=== PATIENT | female | born 2000 | race Caucasian/White ===

== ENCOUNTER 2023-04-02 00:51 | Emergency (ER) | payer MEDICAID, SELFPAY ==
[2023-04-02 00:51] VITALS: BP 126/71; PULSE 99; RESP 18; TEMP 36.9; O2SAT 100; BMI 19.3
--- NOTE | 2023-04-02 02:05 | EDS_ITS ---
HPI History of Present Illness Chief Complaint: Nausea/Vomiting Informant: patient Narrative Narrative: 22-year-old female presenting to the emergency room with headache nausea vomiting at 11.5 weeks gestation. Patient is G1, P0. She states that her COFFEE ATTENDANT is out of town that she recently moved here. She states that she needs to find an COFFEE ATTENDANT that she trust. She states that this afternoon she developed headache nausea and vomiting. The headache felt better if she pushed on her nose felt worse if she laid on the left temporal. She denies any fevers chills rashes diarrhea. No URI symptoms. She states that the headache is somewhat better but the vomiting is persisting. She did not take anything for the headache as she would like to keep this as natural as possible. She states that she did take a hit of marijuana earlier to see if it would help with the vomiting but it did not. She states that she does not use cannabis regularly but did so in the past. She has not had any significant problems with vomiting this but has had some nausea. PFSH PFSH Medical History no medical history Home Medications vit no.95-ferrous fumarate 28 mg-folic acid 800 mcg tablet ( Multivitamins) 1 tab PO DAILY 04/02/23 [History Last Taken Unknown] Allergy/AdvReac Type Severity Reaction Status Date / Time No Known Allergies Allergy Verified 04/02/23 00:56 Social History (Updated 04/02/23 @ 02:[address] Nba Rios, ) Smoking Status: Never smoker substance use type: marijuana EXAM Physical Exam Const Vital Signs: 04/02/23 00:51 Temperature 98.5 F Temperature Source Temporal Pulse Rate 99 Respiratory Rate 18 Blood Pressure 126/71 H Blood Pressure Mean 89 Pulse Ox 100 Oxygen Delivery Method Room Air Positive well nourished and well developed General Appearance ED: well developed HEENT Reports normocephalic, head/scalp atraumatic and moist mucous membranes Eyes PERRL and EOMs intact bilaterally Neck no lymphadenopathy, supple and no JVD Resp normal respiratory effort and clear to auscultation bilaterally Cardio regular rate, regular rhythm and no murmurs GI normal to inspection, nondistended, normoactive bowel sounds and non-tender Palpation: soft Back/Spine no CVA tenderness and normal ROM Extremity normal to inspection General Extremety ED: Negative for edema General Extremity: Negative for edema Neuro oriented x3 and CN's II-XII intact bilaterally Sensorium / Orientation: alert Motor Exam: strength 5/5 throughout Psych mental status grossly normal Mood & Affect: Negative for depressed or tearful Skin no rashes or lesions noted and no wounds MDM MDM MDM Narrative Medical decision making narrative: BMP shows a glucose of 110. Urinalysis shows no overt infection there is some contamination of 5-10 squamous cells. Patient received a liter of IV fluids and Zofran. Repeat examination she states she is feeling better. Nursing documented heart tones at 174. I documented 159. The patient does not wish to have a second liter of IV fluids. She states that she feels overall better. I encouraged her to establish COFFEE ATTENDANT care and provided her with 2 groups and the on-call physicians for them tonight. She states she has Zofran at home. I encouraged her not to use cannabis while . Lab Data Attestation: I reviewed the patient's lab results. Labs: Laboratory Results - last 24 hr 04/02/23 04/02/23 01:05 02:45 Sodium 137 Potassium 3.5 Chloride 106 Carbon Dioxide 24.0 Anion Gap 7 BUN 7 Creatinine 0.40 L Estim Creat Clear Calc 173.50 Est GFR (MDRD) Af Amer 262 Est GFR (MDRD) Non-Af 216 BUN/Creatinine Ratio 17.7 Glucose 110 H Calcium 9.0 Urine Color Yellow Urine Clarity Sl. Cloudy Urine pH 7.0 Ur Specific [place] 1.015 Urine Protein 15 H Urine Glucose (UA) Normal Urine Ketones Negative Urine Occult Blood Negative Urine Nitrite Negative Urine Bilirubin Negative Urine Urobilinogen Normal Ur Leukocyte Esterase Negative Urine RBC 0 SEEN Urine WBC 0 SEEN Ur Squamous Epith Cells 5-10 SEEN Amorphous Sediment 2+ Urine Bacteria 2+ Urine Mucus 0 SEEN Discharge Plan Triage Chief Complaint: Nausea/Vomiting ED Provider: Nba Rios Dx/Rx/DC Orders Clinical Impression: First trimester , Headache, Vomiting Prescriptions: No Action PNV cmb#95-ferrous fumarate-FA [ Multivitamins] 28 mg iron- 800 mcg tablet 1 tab PO DAILY Primary Care Provider: EZ ESPINOSA Referrals: EZ ESPINOSA [Other] Olivia Rodriguez DO [Med Staff - Active Staff] - As Needed (For COFFEE ATTENDANT) Kamilah Ponce MD [Med Staff - Active Staff] - As Needed (For COFFEE ATTENDANT) Disposition Disposition: Home, Self Care
[2023-04-02] MEDS: 0.9% Normal Saline (1000mL) 1,000 ML 1000 ML IV (02:35)
[2023-04-02] MEDS: Ondansetron 4 MG/2 ML Vial IV (02:35)
[2023-04-02 02:48] LABS: Anion Gap 7 (5-15); BUN 7 mg/dL (7-18); BUN/Creat Ratio 17.7 RATIO (10-20); Chloride 106 mmol/L (98-107); EST Glomerular Filtration Rate 216 mL/min (>60); Est Glom Filt Rate - Afr Amer 262 mL/min (>60); Glucose 110 mg/dL (74-106); Potassium 3.5 mmol/L (3.5-5.1); Sodium Level 137 mmol/L (136-145)
[2023-04-02 02:54] LABS: Mucous, Urine 0 SEEN /hpf (<or=2+); Red Blood Cells-Urine 0 SEEN /hpf (0-5); White Blood Cells 0 SEEN /hpf (0-5)
[2023-04-02 02:55] LABS: Color, Urine Yellow (Yellow); Glucose, Dipstick Normal (Normal); Ketone-Dipstick Negative (Negative); Leukocyte Esterase-Dipstick Negative /ul (Negative); Nitrite-Dipstick Negative (Negative); Occult Blood-Urine Negative /ul (Negative); Protein-Dipstick 15 mg/dl (Negative); Specific Gravity, Urine 1.015 (1.002-1.030); Urine Bilirubin Dipstick Negative (Negative); Urine Clarity Sl. Cloudy (Clear); Urine Urobilinogen Normal (Normal)
[2023-04-02 03:00] LABS: Amorphous Sediment 2+; Bacteria 2+ /hpf (None Seen); Squamous Epithelial Cells - UA 5-10 SEEN /hpf (5-10)
[2023-04-02 03:55] VITALS: BP 115/67; PULSE 67; RESP 18; O2SAT 100
== END 2023-04-02 03:56 | disposition home or self-care (01) ==
PROVIDERS: Emergency Provider Emergency Medicine; Visit Provider Emergency Medicine
DX: O99.891 Other specified diseases and conditions complicating pregnancy (principal); O99.321 Drug use complicating pregnancy, first trimester; F12.90 Cannabis use, unspecified, uncomplicated; R51.9 Headache, unspecified; Z3A.11 11 weeks gestation of pregnancy
CPT/HCPCS: 80048; 81001; 96361; 96374; 99283; J7030; A4216; J2405

== ENCOUNTER 2023-09-30 04:07 | Inpatient (IN) | payer MEDICAID, SELFPAY ==
[2023-09-30] VITALS (86 sets, daily range): BP systolic 108–137; BP diastolic 55–84; PULSE 71–172; RESP 16–22; TEMP 36.4–37.4; O2SAT 79–100; BMI 29.5
[2023-09-30 03:14] LABS: Color, Urine Yellow (Yellow); Glucose, Dipstick Normal (Normal); Ketone-Dipstick Negative (Negative); Leukocyte Esterase-Dipstick Negative /ul (Negative); Nitrite-Dipstick Negative (Negative); Occult Blood-Urine 150 /ul (Negative); Protein-Dipstick 30 mg/dl (Negative); Urine Bilirubin Dipstick Negative (Negative); Urine Clarity Cloudy (Clear); Urine Urobilinogen Normal (Normal)
[2023-09-30 03:57] LABS: ROM Internal Control Test YES-OK TO RESULT pt. (Internal QC); ROM Patient Test POSITIVE (Negative); Record Kit Lot#, ROM+ K1409
[2023-09-30 04:42] LABS: Absolute Lymphocyte Count 2.09 X10^3/uL (0.83-4.51); Absolute Neutrophil Count 10.6 X10^3/uL (2.0-7.7); Basophil# 0.05 X10^3/uL; Basophil% 0.4 % (0-1); Eosinophil# 0.05 X10^3/uL; Eosinophils% 0.4 % (0-5); Hematocrit 34.7 % (37-47); Hemoglobin 11.3 g/dL (12.0-15.0); Lymphocyte # 2.09 X10^3/ul (0.83-4.51); Lymphocyte % 14.8 % (19-41); Mean Corp Hgb Conc 32.6 g/dL (32-36); Mean Corpuscular Hgb 28.2 pg (27.0-32.0); Mean Corpuscular Volume 86.5 fL (81-99); Mean Platelet Vol. 9.2 fl (6.2-12.0); Monocyte# 1.25 X10^3/uL; Monocyte% 8.8 % (0-10); NRBC Flagged by Analyzer 0 % (0-5); Neutrophil # 10.56 X10^3/uL (2.7-7.7); Neutrophil % 74.7 % (47-70); Platelet Count 384 K/mm3 (150-450); RBC Distribution Width SD 40.6 fl (35.1-43.9); Red Blood Count 4.01 M/mm3 (4.2-5.4); White Blood Count 14.1 K/mm3 (4.4-11.0)
[2023-09-30] MEDS: fentaNYL 100 MCG/2 ML Ampul IV (05:00)
[2023-09-30] MEDS: Lactated Ringers 1,000 ML 50 ML IV (05:02)
[2023-09-30 05:22] LABS: Syphilis Antibodies Non-reactive
[2023-09-30] MEDS: Ondansetron 4 MG/2 ML Vial IV ×3 (06:39→16:05)
[2023-09-30] MEDS: LACTATED RINGERS 500 ML 999 ML IV ×2 (08:45→15:44)
[2023-09-30] MEDS: fentaNYL-bupivacaine (epidural) 100 ML BAG EPIDURAL ×3 (09:21→18:00)
[2023-09-30] MEDS: Lactated Ringers 1,000 ML 200 ML IV ×2 (12:48→18:17)
--- NOTE | 2023-09-30 16:59 | PCM.HP.OB ---
HPI - General General Date of Admission: 09/30/23 Date of Service: 09/30/23 Chief Complaint: SROM at 0115 HPI Narrative NEETA SCHAEFER, is a 22 F who presents ROM. Maternal Data Information Final ALYSON: [birth year] Gestational age: 37+5 PFSH PFSH Home Medications vit no.95-ferrous fumarate 28 mg-folic acid 800 mcg tablet ( Multivitamins) 1 tab PO DAILY 04/02/23 [History Last Taken Unknown] Allergy/AdvReac Type Severity Reaction Status Date / Time No Known Allergies Allergy Verified 09/30/23 02:50 Social History Smoking Status: Former smoker substance use type: marijuana History Elective abortions Hx Para 0 Spontaneous abortions Hx # Term Pregnancies Ectopic pregnancies Hx # Pregnancies Multiple births # of living children ROS Constitutional Constitutional: Denies fatigue, fever(s) or malaise Eyes Eyes: Denies change in vision ENT HEENT: Denies dizziness or headache(s) Cardiovascular Cardiovascular: Denies chest pain, dyspnea or lightheadedness Respiratory/Chest Respiratory/Chest: Denies cough or dyspnea Gastrointestinal Gastrointestinal: Denies change in bowel habits Genitourinary Genitourinary: Denies burning urination or genital lesions Integumentary Integumentary: Denies rash Neurologic Neurologic: Denies confusion, dizziness, headache(s), numbness or weakness Vital Signs Vital Signs Vital Signs: 09/30/23 02:43 09/30/23 02:43 09/30/23 03:15 Temperature Temperature Source Temporal Pulse Rate 93 Respiratory Rate Blood Pressure 128/84 H BP Systolic 128 BP Diastolic 84 Pulse Ox 09/30/23 03:15 09/30/23 03:15 09/30/23 04:29 Temperature 98.9 F Temperature Source Pulse Rate Respiratory Rate 16 Blood Pressure 132/63 H BP Systolic 132 BP Diastolic 63 Pulse Ox 09/30/23 04:29 09/30/23 04:28 09/30/23 04:28 Temperature Temperature Source Temporal Pulse Rate 95 Respiratory Rate 18 Blood Pressure BP Systolic BP Diastolic Pulse Ox 09/30/23 04:28 09/30/23 04:40 09/30/23 04:40 Temperature 98.8 F Temperature Source Pulse Rate 93 Respiratory Rate Blood Pressure BP Systolic BP Diastolic Pulse Ox 99 09/30/23 05:28 09/30/23 05:28 09/30/23 05:28 Temperature Temperature Source Temporal Pulse Rate 75 Respiratory Rate Blood Pressure 120/75 BP Systolic 120 BP Diastolic 75 Pulse Ox 09/30/23 05:28 09/30/23 05:28 09/30/23 06:29 Temperature 98.0 F Temperature Source Temporal Pulse Rate Respiratory Rate 18 Blood Pressure BP Systolic BP Diastolic Pulse Ox 09/30/23 06:29 09/30/23 06:29 09/30/23 06:29 Temperature Temperature Source Pulse Rate 89 Respiratory Rate 18 Blood Pressure 122/70 H BP Systolic 122 BP Diastolic 70 Pulse Ox 09/30/23 06:29 09/30/23 07:32 09/30/23 07:32 Temperature 99.0 F Temperature Source Pulse Rate 83 Respiratory Rate Blood Pressure 113/72 BP Systolic 113 BP Diastolic 72 Pulse Ox 09/30/23 07:33 09/30/23 07:33 09/30/23 07:31 Temperature Temperature Source Temporal Pulse Rate 172 H Respiratory Rate Blood Pressure BP Systolic BP Diastolic Pulse Ox 99 09/30/23 07:31 09/30/23 07:31 09/30/23 07:31 Temperature 97.5 F L Temperature Source Temporal Pulse Rate Respiratory Rate 20 H Blood Pressure BP Systolic BP Diastolic Pulse Ox 09/30/23 07:31 09/30/23 07:31 09/30/23 08:27 Temperature 97.5 F L Temperature Source Temporal Pulse Rate Respiratory Rate 20 H Blood Pressure BP Systolic BP Diastolic Pulse Ox 09/30/23 08:27 09/30/23 08:27 09/30/23 09:09 Temperature 98.2 F Temperature Source Pulse Rate 131 H Respiratory Rate 22 H Blood Pressure BP Systolic BP Diastolic Pulse Ox 09/30/23 09:09 09/30/23 09:13 09/30/23 09:13 Temperature Temperature Source Pulse Rate 95 Respiratory Rate Blood Pressure BP Systolic BP Diastolic Pulse Ox 81 99 09/30/23 09:18 09/30/23 09:18 09/30/23 09:19 Temperature Temperature Source Pulse Rate 90 Respiratory Rate Blood Pressure 128/77 H BP Systolic 128 BP Diastolic 77 Pulse Ox 100 09/30/23 09:19 09/30/23 09:23 09/30/23 09:23 Temperature Temperature Source Pulse Rate 94 72 Respiratory Rate Blood Pressure BP Systolic BP Diastolic Pulse Ox 99 09/30/23 09:24 09/30/23 09:24 09/30/23 09:25 Temperature Temperature Source Pulse Rate 74 Respiratory Rate Blood Pressure 125/67 H 126/72 H BP Systolic 125 126 BP Diastolic 67 72 Pulse Ox 09/30/23 09:25 09/30/23 09:28 09/30/23 09:28 Temperature Temperature Source Pulse Rate 78 80 Respiratory Rate Blood Pressure 119/74 BP Systolic 119 BP Diastolic 74 Pulse Ox 09/30/23 09:28 09/30/23 09:33 09/30/23 09:33 Temperature Temperature Source Pulse Rate 81 Respiratory Rate Blood Pressure BP Systolic BP Diastolic Pulse Ox 99 100 09/30/23 09:33 09/30/23 09:33 09/30/23 09:35 Temperature 98.2 F Temperature Source Temporal Pulse Rate Respiratory Rate Blood Pressure 111/55 L BP Systolic 111 BP Diastolic 55 Pulse Ox 09/30/23 09:35 09/30/23 09:38 09/30/23 09:38 Temperature Temperature Source Pulse Rate 83 72 Respiratory Rate Blood Pressure BP Systolic BP Diastolic Pulse Ox 100 09/30/23 09:40 09/30/23 09:40 09/30/23 09:43 Temperature Temperature Source Pulse Rate 84 93 Respiratory Rate Blood Pressure 118/59 L BP Systolic 118 BP Diastolic 59 Pulse Ox 09/30/23 09:22 09/30/23 09:43 09/30/23 09:44 Temperature Temperature Source Pulse Rate Respiratory Rate 20 H Blood Pressure 115/57 L BP Systolic 115 BP Diastolic 57 Pulse Ox 100 09/30/23 09:44 09/30/23 09:42 09/30/23 09:37 Temperature Temperature Source Pulse Rate 86 Respiratory Rate 18 18 Blood Pressure BP Systolic BP Diastolic Pulse Ox 09/30/23 09:32 09/30/23 09:27 09/30/23 09:48 Temperature Temperature Source Pulse Rate 74 Respiratory Rate 18 20 H Blood Pressure BP Systolic BP Diastolic Pulse Ox 09/30/23 09:48 09/30/23 09:49 09/30/23 09:49 Temperature Temperature Source Pulse Rate 78 Respiratory Rate Blood Pressure 113/55 L BP Systolic 113 BP Diastolic 55 Pulse Ox 100 09/30/23 09:53 09/30/23 09:53 09/30/23 09:54 Temperature Temperature Source Pulse Rate 78 Respiratory Rate Blood Pressure 118/57 L BP Systolic 118 BP Diastolic 57 Pulse Ox 100 09/30/23 09:54 09/30/23 09:58 09/30/23 09:58 Temperature Temperature Source Pulse Rate 78 82 Respiratory Rate Blood Pressure BP Systolic BP Diastolic Pulse Ox 99 09/30/23 09:59 09/30/23 09:59 09/30/23 10:03 Temperature Temperature Source Pulse Rate 81 86 Respiratory Rate Blood Pressure 120/59 L BP Systolic 120 BP Diastolic 59 Pulse Ox 09/30/23 10:03 09/30/23 10:04 09/30/23 10:04 Temperature Temperature Source Pulse Rate 88 Respiratory Rate Blood Pressure 114/59 L BP Systolic 114 BP Diastolic 59 Pulse Ox 99 09/30/23 10:08 09/30/23 10:08 09/30/23 10:10 Temperature Temperature Source Pulse Rate 76 Respiratory Rate Blood Pressure 121/61 H BP Systolic 121 BP Diastolic 61 Pulse Ox 98 09/30/23 10:10 09/30/23 10:13 09/30/23 10:13 Temperature Temperature Source Pulse Rate 86 99 Respiratory Rate Blood Pressure BP Systolic BP Diastolic Pulse Ox 99 09/30/23 10:15 09/30/23 10:15 09/30/23 10:18 Temperature Temperature Source Pulse Rate 80 80 Respiratory Rate Blood Pressure 122/67 H BP Systolic 122 BP Diastolic 67 Pulse Ox 09/30/23 10:18 09/30/23 10:20 09/30/23 10:20 Temperature Temperature Source Pulse Rate 85 Respiratory Rate Blood Pressure 111/57 L BP Systolic 111 BP Diastolic 57 Pulse Ox 99 09/30/23 10:23 09/30/23 10:23 09/30/23 10:23 Temperature 98.9 F Temperature Source Temporal Pulse Rate Respiratory Rate 18 Blood Pressure BP Systolic BP Diastolic Pulse Ox 09/30/23 10:50 09/30/23 10:50 09/30/23 09:52 Temperature Temperature Source Pulse Rate 85 Respiratory Rate 18 Blood Pressure 116/56 L BP Systolic 116 BP Diastolic 56 Pulse Ox 09/30/23 09:47 09/30/23 11:22 09/30/23 11:22 Temperature Temperature Source Pulse Rate 91 Respiratory Rate 18 Blood Pressure 115/57 L BP Systolic 115 BP Diastolic 57 Pulse Ox 09/30/23 11:33 09/30/23 11:33 09/30/23 11:33 Temperature 98.5 F Temperature Source Temporal Pulse Rate Respiratory Rate 18 Blood Pressure BP Systolic BP Diastolic Pulse Ox 09/30/23 11:50 09/30/23 11:50 09/30/23 11:55 Temperature Temperature Source Pulse Rate 80 87 Respiratory Rate Blood Pressure BP Systolic BP Diastolic Pulse Ox 98 09/30/23 11:55 09/30/23 12:00 09/30/23 12:00 Temperature Temperature Source Pulse Rate 91 Respiratory Rate Blood Pressure BP Systolic BP Diastolic Pulse Ox 98 98 09/30/23 12:22 09/30/23 12:22 09/30/23 12:22 Temperature 98.3 F Temperature Source Temporal Pulse Rate Respiratory Rate 18 Blood Pressure BP Systolic BP Diastolic Pulse Ox 09/30/23 12:23 09/30/23 12:23 09/30/23 12:23 Temperature Temperature Source Pulse Rate 94 Respiratory Rate Blood Pressure 108/58 L BP Systolic 108 BP Diastolic 58 Pulse Ox 98 09/30/23 13:22 09/30/23 13:22 09/30/23 13:22 Temperature Temperature Source Temporal Pulse Rate 88 Respiratory Rate Blood Pressure 122/62 H BP Systolic 122 BP Diastolic 62 Pulse Ox 09/30/23 13:22 09/30/23 13:22 09/30/23 14:06 Temperature 98.9 F Temperature Source Temporal Pulse Rate Respiratory Rate 18 Blood Pressure BP Systolic BP Diastolic Pulse Ox 09/30/23 14:06 09/30/23 14:06 09/30/23 14:12 Temperature 98.9 F Temperature Source Pulse Rate Respiratory Rate 18 Blood Pressure 120/60 BP Systolic 120 BP Diastolic 60 Pulse Ox 09/30/23 14:12 09/30/23 15:17 09/30/23 15:17 Temperature Temperature Source Pulse Rate 82 84 Respiratory Rate Blood Pressure 118/68 BP Systolic 118 BP Diastolic 68 Pulse Ox 09/30/23 15:17 09/30/23 15:17 09/30/23 15:17 Temperature Temperature Source Temporal Pulse Rate Respiratory Rate 16 Blood Pressure BP Systolic BP Diastolic Pulse Ox 100 09/30/23 15:17 09/30/23 16:15 09/30/23 16:15 Temperature 99.0 F Temperature Source Pulse Rate 92 Respiratory Rate Blood Pressure 124/75 H BP Systolic 124 BP Diastolic 75 Pulse Ox 09/30/23 16:14 09/30/23 16:14 09/30/23 16:14 Temperature 99.0 F Temperature Source Temporal Pulse Rate Respiratory Rate 16 Blood Pressure BP Systolic BP Diastolic Pulse Ox Weight Weight: 75.75 kg Body Mass Index (BMI) 29.5 Physical Exam Const alert and no apparent distress General Appearance: cooperative HEENT normocephalic Resp normal respiratory effort Cardio regular rate GI soft to palpation GI Narrative: gravid, nontender, appropriate for gestational age Extremity no calf tenderness General Extremity: edema Skin no wounds Rashes: No rashes noted Psych activity/motor behavior normal Labs Labs Labs: Blood Type B POSITIVE Antibody Screen NEGATIVE Hct 34.7 % (37-47) L Hgb 11.3 g/dL (12.0-15.0) L Syphilis Total Ab Non-reactive Assessment & Plan (1) SROM (spontaneous rupture of membranes): PLAN: Augmentation of labor (2) 37 weeks gestation of :
[2023-09-30] MEDS: Oxytocin 10 UNITS/ML Vial IM (22:36)
[2023-09-30] MEDS: Oxytocin 15 Units/NS 250ml 15 UNITS/250 ML IV.SOLN 83 UNITS IV (22:36)
[2023-10-01] VITALS (25 sets, daily range): BP systolic 104–137; BP diastolic 58–86; PULSE 76–92; RESP 16; TEMP 36.6–37.3; O2SAT 97–99
--- NOTE | 2023-10-01 00:27 | EX.PCM.OBRPT ---
Assessment & Plan (1) (spontaneous vaginal delivery): (2) 37 weeks gestation of : Maternal Data Information Final ALYSON: 10[birth year]/23 Gestational age: 37+5 Vaginal Delivery Maternal Presentation Maternal Presentation: Spontaneous Rupture of Membranes Operative Information Date of Procedure: 09/30/23 Pre-Operative Diagnosis: PROM Post-Operative Diagnosis: same Surgery / Procedure Performed: Spontaneous Vaginal Delivery Type of Anesthesia: Epidural Drain: [place] to straight drain Estimated Blood Loss: 100 Time of Delivery: 22:34 Findings Description of Procedure: Patient presented with PROM. Progressed to complete without Pitocin. Pushed for approximately 4 hours delivering TYLOR with the right hand below the chin. The anterior and posterior shoulder delivered easily. The infant cried upon delivery. The infant was placed n the maternal abdomen. The cord was doubly clamped and cut. The placenta delivered with traction. A 1st degree laceration was repaired with Vicryl Rapide Presentation: Vertex and TYLOR Amniotic Membrane Rupture Type: Spontaneous Amniotic Fluid Description: Clear Placental Delivery Description: Spontaneous Placenta Disposition: [facility] Cord Vessel Description: 3 Vessels Cord Entanglement: None Infant A Gender: Female (1 minute): 9 (5 minute): 9 Delayed Cord Clamping: Yes Post Vaginal Delivery Medications Given After Delivery: IV Pitocin and IM Pitocin Episiotomy Description: None Laceration: Midline and 1st degree Complication Complications: None
[2023-10-01] MEDS: Ibuprofen 600 MG Tablet PO ×3 (03:43→20:47)
--- NOTE | 2023-10-01 09:14 | PCM.PN.OB ---
Subjective Subjective Doing well per patient and nursing staff. Ambulating and taking PO without difficulty. Voiding and passing flatus. Pain controlled. , services for assistance. Denies headache, visual changes, chest pain, shortness of breath, leg pain or increased bleeding. Lochia normal. Objective Data Objective Data Vital Signs: Vital Signs Temp Pulse Resp BP Pulse Ox O2 Del Method 98 F 90 16 119/73 99 Room Air 10/01/23 08:19 10/01/23 08:19 10/01/23 08:19 10/01/23 08:19 10/01/23 01:03 10/01/23 08:19 Oxygen Delivery Method Room Air Weight: 167 lb Body Mass Index (BMI) 29.5 Intake & Output: Intake and Output for Last 24 Hours 09/29/23 09/30/23 10/01/23 23:59 23:59 23:59 Intake Total 3739.17 / 3739.17 250 / 250 Output Total 1250 / 1250 1000 / 1000 Balance 2489.17 / 2489.17 -750 / -750 Lab / Micro Data 09/30/23 04:20 ROS Constitutional Constitutional: Reports systems reviewed and no addt'l complaints, except as documented; Denies headache(s) Eyes Eyes: Denies acute decrease in peripheral vision, blurry vision or change in vision ENT HEENT: Reports systems reviewed and no addt'l complaints, except as documented Cardiovascular Cardiovascular: Denies chest pain or dizziness Respiratory/Chest Respiratory/Chest: Denies cough, dyspnea, dyspnea on exertion, shortness of breath at rest or shortness of breath with exertion Gastrointestinal Gastrointestinal: Denies abdominal pain, diarrhea, nausea or vomiting Genitourinary Genitourinary: Denies abdominal discomfort Musculoskeletal Musculoskeletal: Denies limited range of motion Integumentary Integumentary: Reports systems reviewed and no addt'l complaints, except as documented Neurologic Neurologic: Reports systems reviewed and no addt'l complaints, except as documented Psychiatric Psychiatric: Reports systems reviewed and no addt'l complaints, except as documented Endocrine Endocrinology: Reports systems reviewed and no addt'l complaints, except as documented Hematologic/Lymphatic Hematologic/Lymphatic: Reports systems reviewed and no addt'l complaints, except as documented Allergic/Immunologic Allergic/Immunologic: Reports systems reviewed and no addt'l complaints, except as documented Physical Exam Const alert and oriented x3 General Appearance: cooperative Orientation / Consciousness: awake, oriented to person, oriented to place and oriented to time Exam Limitations: no limitations HEENT normocephalic Head and Scalp: normal to inspection, normocephalic and atraumatic Face and Sinus: normal facial exam Eyes General Eye: normal appearance of both eyes Neck full ROM Chest Chest: symmetrical chest wall rise Resp normal respiratory effort and normal air movement Auscultation: clear to auscultation bilaterally Cardio regular rate, regular rhythm, S1 normal heart sound, S2 normal heart sound, no murmurs, no rub, no gallops and no clicks GI normal to inspection, nondistended, normoactive bowel sounds and non-tender appearance of the vagina normal Bladder / Kidney Exam: no CVA tenderness Back/Spine normal ROM Extremity normal to inspection and full ROM Skin no rashes or lesions noted Neuro oriented x3 and moves all extremities Sensorium / Orientation: awake, alert and oriented to person Motor Exam: clonus absent Deep Tendon Reflexes: Rt Patellar (L4): 2+ and Lt Patellar (L4): 2+ Assessment & Plan (1) (spontaneous vaginal delivery): (2) Lactating mother: PLAN: Plan 1) Routine PP care 2) Vitals stable 3) I&O 4) Pain management 5) 6) Planning D/C home tomorrow
[2023-10-01] MEDS: Acetaminophen 500 MG Tablet 1000 MG PO ×2 (10:25→17:30)
[2023-10-01] MEDS: Benzocaine/Lanolin/Aloe Vera 1 SPRAY EACH TOPICAL (12:24)
--- NOTE | 2023-10-01 13:36 | PCM.PN.OB ---
Objective Data Objective Data Vital Signs: Vital Signs Temp Pulse Resp BP Pulse Ox O2 Del Method 98 F 82 16 116/59 L 99 Room Air 10/01/23 08:19 10/01/23 12:20 10/01/23 12:20 10/01/23 12:20 10/01/23 01:03 10/01/23 12:20 Oxygen Delivery Method Room Air Weight: 167 lb Body Mass Index (BMI) 29.5 Intake & Output: Intake and Output for Last 24 Hours 09/29/23 09/30/23 10/01/23 23:59 23:59 23:59 Intake Total 3739.17 / 3739.17 250 / 250 Output Total 1250 / 1250 1000 / 1000 Balance 2489.17 / 2489.17 -750 / -750 Lab / Micro Data 09/30/23 04:20
[2023-10-02 01:31] VITALS: BP 111/63; PULSE 71
[2023-10-02 01:41] VITALS: BP 111/63; PULSE 71; RESP 16; TEMP 36.4
[2023-10-02 08:49] VITALS: BP 123/76; PULSE 83
[2023-10-02 08:50] VITALS: BP 123/76; PULSE 83; PULSE 86; RESP 16; TEMP 36.7; O2SAT 98; O2SAT 99
--- NOTE | 2023-10-02 09:10 | PCM.PN.CNM ---
Subjective Subjective Patient seen at bedside. Pumping and feeding via spoon. Denies pain. Ambulating and voiding without difficulty. Objective Data Objective Data Vital Signs: Vital Signs Temp Pulse Resp BP Pulse Ox O2 Del Method 98.1 F 83 16 123/76 H 99 Room Air 10/02/23 08:50 10/02/23 08:50 10/02/23 08:50 10/02/23 08:50 10/02/23 08:50 10/02/23 08:50 Oxygen Delivery Method Room Air Weight: 167 lb Body Mass Index (BMI) 29.5 Intake & Output: Intake and Output for Last 24 Hours 09/30/23 10/01/23 10/02/23 23:59 23:59 23:59 Intake Total 3739.17 / 3739.17 250 / 250 Output Total 1250 / 1250 1000 / 1000 Balance 2489.17 / 2489.17 -750 / -750 Lab / Micro Data 09/30/23 04:20 ROS Eyes Eyes: Denies blurry vision, change in vision or spots in vision ENT HEENT: Denies dizziness or headache(s) Cardiovascular Cardiovascular: Denies abdominal pain, chest pain or dyspnea Respiratory/Chest Respiratory/Chest: Denies cough, dyspnea, shortness of breath at rest or shortness of breath with exertion Gastrointestinal Gastrointestinal: Denies abdominal pain, diarrhea or vomiting Genitourinary Genitourinary: Denies change in urinary stream, difficulty urinating or dysuria Musculoskeletal Musculoskeletal: Reports none Integumentary Integumentary: Denies rash Neurologic Neurologic: Denies dizziness, headache(s), memory loss or weakness Physical Exam Const alert and no apparent distress General Appearance: cooperative and comfortable Exam Limitations: no limitations HEENT normocephalic Eyes General Eye: normal appearance of both eyes Neck full ROM General: normal visual inspection Chest Chest: symmetrical chest wall rise Resp normal respiratory effort and normal air movement Effort and Inspection: symmetric chest movement Auscultation: clear to auscultation bilaterally Cardio regular rate and regular rhythm GI normal to inspection, nondistended, normoactive bowel sounds Back/Spine normal ROM Extremity full ROM and no calf tenderness General Extremity: normal exam except as noted Skin no rashes or lesions noted Neuro CN's II-XII intact bilaterally Psych mental status grossly normal Assessment & Plan (1) Lactating mother: (2) (spontaneous vaginal delivery): (3) Laceration, obstetrical, first degree: PLAN: Plan PPD 1 Routine care support Anticipate discharge home tomorrow
--- NOTE | 2023-10-02 12:18 | CASEMGMT ---
Social Work Assessment Labor and Delivery Unit Patient Address: [address] [place] [id number] Phone number: [phone] Date of Referral: 09/30/23 Time of Referral:? 520 Referred By: Mary Rolle Date of Intervention: ?10/01/23? Time of Intervention:? 1320 Reason for Referral: mental health Sw completed chart review and acknowledges social work consult due to maternal mental health. Sw presented to bedside and introduced self to mother of baby (MOB- Isis) and father of baby (FOB- Giovanni). Sw explained reason for sw involvement and completed psychosocial assessment. Sw did ask FOB to step out of room so that MOB could complete [place] Depression Scale. FOB did so willingly and respectfully. History obtained from: medical records, MOB and FOB Household composition: MOB states that at this time she and FOB are living in a home/ apartment with other tenants. MOB states that she and FOB have a room and baby also has her own room. MOB states that their landlord just informed them that there is another house across the street that they could move into that offers more room. Patient's parent/guardian status:? MOB states that she and FOB have been together for 3.5 years. MOB states that she had plans to hang out with a friend, and when she arrived at her friends house the friend was not ready yet. While MOB waited to spent time with FOB who was her friends roommate at that time. ? Medical History: ?JOSSELYN is 22 year old female who is 1, para 0- now 1 following labor and delivery of . JOSSELYN received routine care during her with [facility]. JOSSELYN presented to hospital and delivered baby via vaginal delivery at 37 weeks gestation. Baby girl, named Belinda Wilkins, was born weighing 6lb 8oz with apgars of 9 and 9 at one and five minutes of life, respectfully. MOB states that baby will be followed by Dr. Mccall for pediatrics. MOB states that she is breast feeding and does have a pump for home. Educational Status:? Both parents graduated from high school, no concerns with reading, learning or comprehension. Financial Status: Both parents are gainfully employed outside of the home. FOB works fro [employer] in [place]. MOB states that she works at [employer] and is able to take off as much time as she needs for . Supplies:?? Parents have obtained all necessary baby supplies, including: car seat, safe sleep space, clothes, diapers and wipes. MOB states that they did not have the car seat installed until today because baby was born early. Childcare/Caregiver(s):? JOSSELYN states that she will be the primary caregiver to baby along with FOB when he is not at work. Parents state that when they are both at work they have two family members that will be able to help with childcare. Transportation:??MOB states that she does not drive, but TIFF does and he helps her to get to scheduled appointments or work. Programs/Agencies Involved: ?JOSSELYN is connected to insurance through [employer]. Sw encouraged MOB to get connected to [employer] and to apply for SNAP. Parents express understanding. ?? Children Services/Legal Issues:?No history of involvement and no issues or concerns warranting referral to be made at this time. ?? Behavioral Health Issues: ??Mental Health History:?FOGwendolyn denies mental health history. MOB states that she has been diagnosed with anxiety, depression, PTSD and OCD. MOB states that she is not prescribed medications at this time. MOB is not connected to any mental health services or supports but is wanting to get connected. Sw provided MOB with list of local counseling agencies and offered to help MOB get an appointment scheduled. MOB completed [place] Depression Scale, her score was a 6. Sw provided education and support. ?? Substance Use History:?Parents deny substance use history. ? Family History:?JOSSELYN states that her mom has a history of abusing pain pills, but has been engaged in a suboxone treatment program for over a year. ??? Drug Screens: ?No drug screens observed during chart review. Family/Social Stressors:? Parents deny any issues, concerns or stressors. Support Systems: TIFF states that his mom is their biggest support, MOB states that TIFF is her biggest support and her sister. Depression/Shaken Baby/Safe Sleeping:? Sw educated parents at length regarding signs and symptoms of baby blues and depression. Sw explained that due to MOB's mental health history/ diagnoses she is more susceptible to experiencing baby blues and depression or anxiety. Parents express understanding. Sw educated parents on shaken baby prevention and ABCs of safe sleep. Parents express understanding. ASSESSMENT: MOB and baby admitted following labor and delivery of . MOB and FOB both engaged in completion of psychosocial assessment. Parents have all necessary baby supplies that they need for baby. Parents have limited natural supports in place, but they are close and supportive to one another. FOB observed to be very attentive to MOB and her needs, and also observed to provide loving and appropriate hands on care to . MOB receptive to learning about mental health issues. MOB states that FOB would be able to recognize if she were struggling with her mental health and would know how to help and support her. ? PLAN:? MOB and baby to be discharged when medically ready. ?No other services requested or indicated. Justin Vang, FLOOR MECHANIC, TANYARD WORKER
[2023-10-02 13:34] VITALS: BP 131/80; PULSE 85
[2023-10-02 13:35] VITALS: BP 131/80; PULSE 85; RESP 16; TEMP 36.6
--- NOTE | 2023-10-02 18:53 | PCM.DC.SUM ---
Providers Date of Admission: 09/30/23 Primary Care Physician: EZ ESPINOSA Reason For Visit: VAGINAL DELIVERY Diagnosis Discharge Diagnosis (1) Lactating mother: Status: Acute Code(s): Z39.1 - Encounter for care and examination of lactating mother (2) (spontaneous vaginal delivery): Status: Acute Code(s): O80 - Encounter for full-term uncomplicated delivery (3) Laceration, obstetrical, first degree: Status: Acute Code(s): O70.0 - First degree perineal laceration during delivery Plan PPD 2 Routine care support Medications at Discharge Home Medications vit no.95-ferrous fumarate 28 mg-folic acid 800 mcg tablet ( Multivitamins) 1 tab PO DAILY 04/02/23 Hospital Course Operations None Procedures None Summary of Care Provided Minutes Spent on Discharge: 15 Hospital Course: . Hospital course was uneventful. Physical Exam Const alert and no apparent distress General Appearance: cooperative and comfortable Exam Limitations: no limitations HEENT normocephalic Eyes General Eye: normal appearance of both eyes Neck full ROM General: normal visual inspection Chest Chest: symmetrical chest wall rise Resp normal respiratory effort and normal air movement Effort and Inspection: symmetric chest movement Auscultation: clear to auscultation bilaterally Cardio regular rate and regular rhythm GI normal to inspection, nondistended, normoactive bowel sounds Back/Spine normal ROM Extremity full ROM and no calf tenderness General Extremity: normal exam except as noted Skin no rashes or lesions noted Neuro CN's II-XII intact bilaterally Psych mental status grossly normal Weight / BMI Weight Weight: 167 lb Body Mass Index (BMI) 29.5 ABG / Lab / Microbiology Data 09/30/23 04:20 D/C Instructions Discharge Diet: No restrictions May resume sexual activity in: 6-8 weeks Weight Bearing Status: Weight bearing as tolerated Call your doctor if you observe: Fever of 101 or Higher, Inability to urinate, Using more than 1 pad per hour, Shortness of breath, Chest pain, Calf discomfort and Uncontrolled pain When: 2 weeks virtual visit/ 6 weeks in office Meaningful Use Info Meaningful Use Meaningful Use Diagnoses (Choose all that apply): None applicable Ischemic Stroke Statin Dosing Therapy Reference: STATIN DOSE THERAPY REFERENCE: * Patients > 75 years receive moderate or high dose statin therapy. * Patients 75 years or YOUNGER should receive HIGH intensity statin dose unless contraindicated. You will be required to document reason for non-treatment if statin daily dose does not meet guidelines. HIGH DOSE STATIN THERAPY DAILY Atorvastatin > than or = to 40 mg Rosuvastatin > than or = to 20 mg Amlodipine + Atorvastatin > than or = to 2.5/40 mg Ezetimibe + Simvastatin 10/80 mg Simvastatin 80mg Discharge Plan Admission Admit Date/Time: 09/30/23 04:07 Primary Reason for Your Visit: Labor and Delivery Attending Provider: Olivia Malin Primary Care Provider: EZ ESPINOSA Discharge Orders/Prescriptions Prescriptions: No Action PNV cmb#95-ferrous fumarate-FA [ Multivitamins] 28 mg iron- 800 mcg tablet 1 tab PO DAILY Referrals / Follow Up: EZ ESPINOSA [Other] Sylvia Butler CNM [Med Staff - Adv Practice Prof] - Disposition Disposition (needs filled in before D/C Order can be placed): Home, Self Care
== END 2023-10-02 19:33 | disposition home or self-care (01) | DRG 560 ==
LOC: WP 07:05
PROVIDERS: Advanced Practice Midwife; Admitting Provider Obstetrics & Gynecology; Referring Provider Obstetrics & Gynecology; Visit Provider Obstetrics & Gynecology
DX: O42.92 Full-term premature rupture of membranes, unspecified as to length of time between rupture and onset of labor (principal); Z37.0 Single live birth; O70.0 First degree perineal laceration during delivery; Z3A.37 37 weeks gestation of pregnancy; Z87.891 Personal history of nicotine dependence
CPT/HCPCS: 59025; 59050; 81002; 84112; 85025; 86780; 86850; 86900; 86901; 99221; J7120; G0378; J2405